=== PATIENT | male | born 1955 | race Caucasian/White ===

== ENCOUNTER 2020-11-29 08:48 | Outpatient (CLI) | payer MEDICARE, SELFPAY ==
--- NOTE | ~2020-11-29 | XR_ITS ---
EXAMINATION: XR ankle LT min 3V DATE: 11/29/2020 09:13 INDICATION: Left heel pain TECHNIQUE: Anteroposterior, lateral, mortise, and additional oblique view of the ankle were obtained. COMPARISON: None. FINDINGS: There is no acute fracture, dislocation, or subluxation. Mild irregularity of the medial ma lleolus could reflect prior injury. Alignment is normal. The soft tissues are unremarkable. Calcified atherosclerosis is noted. IMPRESSION: 1. No acute osseous abnormality. Reviewed, dictated and finalized at location A.
== END 2020-11-29 08:49 | disposition home or self-care (01) ==
PROVIDERS: PCP Family Medicine; Visit Provider Family Medicine
DX: M79.672 Pain in left foot (principal)
CPT/HCPCS: 73610